=== PATIENT | male | born 1965 | race African-American/Black ===

== ENCOUNTER 2022-09-12 14:46 | Outpatient (REF) | payer OTHER, SELFPAY ==
--- NOTE | ~2022-09-12 | CT_ITS ---
EXAMINATION: CT CHEST SCREENING CLINICAL INFORMATION: Nicotine dependence. COMPARISON: None. TECHNIQUE: Multidetector volumetric CT imaging of the chest is performed without contrast using low dose technique. Additional 2D coronal and sagittal reformatted images and axial 3D maximum intensity projection (MIP) images are generated on the CT workstation. This CT examination was performed using dose optimization techniques as appropriate, variously including the following: *Automated exposure control *Adjustment of mA and/or kV according to patient size (this includes techniques or standardized protocols for targeted exams where dose is matched to indication/reason for exam; i.e. extremities or head) *Use of iterative reconstruction technique DLP: 52 mGy-cm FINDINGS: LUNGS: The lungs show centrilobular emphysema without acute pneumonic consolidation. There is no pulmonary or nodule mass. Minimal groundglass attenuation is seen in both lung bases. There is bilateral lower lobe bronchial wall thickening and mild bronchiectasis with endobronchial secretions in the left lower lobe axial image 388/6 and right upper lobe axial image 238/6. MEDIASTINUM: The thyroid lobes are symmetric and normal. The central trachea and the bronchi are widely patent. Heart size and the great vessels are normal caliber. No pericardial effusion seen. No abnormal size mediastinal or hilar lymph nodes seen. CORONARY ARTERY CALCIFICATION: None visualized on this study. PLEURA: There is no pleural effusion. No pleural mass or thickening. AXILLA: There are small shotty lymph nodes in the axilla. UPPER ABDOMEN: Visualized liver, spleen, pancreas and bilateral adrenal glands unremarkable. OSSEOUS STRUCTURES: No aggressive lytic or sclerotic process seen. CT/CT lung screening IMPRESSION: No pulmonary nodule or mass seen. Centrilobular emphysema. There is bilateral lower lobe bronchial wall thickening and mild bronchiectasis with endobronchial secretions in the left lower lobe and right upper lobe. ASSESSMENT: Lung-RADS category 2: Benign RECOMMENDATION: Low-dose annual CT chest.
== END 2022-09-12 14:47 | disposition home or self-care (01) ==
LOC: HO.CT 14:46
PROVIDERS: PCP Hospitalist; Visit Provider Physician Assistant Medical
DX: Z12.2 Encounter for screening for malignant neoplasm of respiratory organs (principal); F17.210 Nicotine dependence, cigarettes, uncomplicated
CPT/HCPCS: 71271; G0296

== ENCOUNTER 2024-03-14 08:26 | Outpatient (REF) | payer MEDICARE, SELFPAY ==
--- NOTE | ~2024-03-14 | CT_ITS ---
EXAMINATION: CT LUNG SCREENING CLINICAL INFORMATION: Nicotine dependence, cigarettes, uncomplicated. The patient is a current smoker with a 48 pack-year history of smoking. COMPARISON: CT chest 09/12/2022. TECHNIQUE: Multidetector volumetric CT imaging of the chest is performed on a Siemens SOMATOM Definition scanner without contrast using low dose technique. Additional 2D coronal and sagittal reformatted images and axial 3D maximum intensity projection (MIP) images are generated on the CT workstation. This CT examination was performed using dose optimization techniques as appropriate, variously including the following: *Automated exposure control *Adjustment of mA and/or kV according to patient size (this includes techniques or standardized protocols for targeted exams where dose is matched to indication/reason for exam; i.e. extremities or head) *Use of iterative reconstruction technique TOTAL EXAM DLP: 53 mGy-cm. CTDIvol: 1.43 mGy. FINDINGS: PULMONARY NODULES: Some tiny unchanged pulmonary nodules are seen, including a 2 mm left upper lobe nodule (5:132 and a 2 mm left lower lobe nodule (5:369). No new, increasing-sized or concerning nodules. LUNGS: Lungs bilaterally symmetrically expanded. Emphysematous changes are present along with bronchial thickening and some mild cylindrical bronchiectasis, similar to prior. No effusion or pneumothorax. Central airways patent. MEDIASTINUM: No mediastinal, hilar or axillary adenopathy or free fluid collection. CORONARY ARTERY CALCIFICATION: None visualized on this study. THYROID GLAND: Unremarkable to the extent seen. CARDIOVASCULAR STRUCTURES: Aortic and heart size normal. No pericardial effusion. CHEST WALL/AXILLA: Unremarkable. UPPER ABDOMEN: Included portions of the solid organs in the upper abdomen unremarkable on noncontrast imaging. OSSEOUS STRUCTURES: No suspicious focal findings. CT/CT lung screening IMPRESSION: 1. No evidence of pulmonary malignancy. 2. Stable tiny pulmonary nodules. 3. Emphysema and bronchial thickening. 4. Incidental findings (s category): No incidental findings. ASSESSMENT: 1. Lung-RADS Category 2: Benign appearance or behavior of nodules. N/A RECOMMENDATION: Continued routine annual low-dose CT lung screening in 1 year is recommended. An order for CT CHEST LOW DOSE CANCER SCREENING ([id number]) can be placed.
== END 2024-03-14 08:27 | disposition home or self-care (01) ==
LOC: HO.CT 08:26
PROVIDERS: PCP Hospitalist; Visit Provider Physician Assistant Medical
DX: Z12.2 Encounter for screening for malignant neoplasm of respiratory organs (principal); F17.210 Nicotine dependence, cigarettes, uncomplicated
CPT/HCPCS: 71271

== ENCOUNTER 2025-03-16 07:58 | Outpatient (REF) | payer MEDICARE, SELFPAY ==
--- NOTE | ~2025-03-16 | CT_ITS ---
CLINICAL HISTORY: F17.210 - Nicotine dependence, cigarettes, uncomplicated CT lung cancer screening (LDCT) Comparison: None Technique: Axial CT images of the chest using low-dose technique. Referring provider counseled the patient on shared decision-making for LDCT screening. Additional counseling was provided on smoking cessation. Effective radiation dose total: DLP 35.7 mGycm, CTDIvol 0.9 mGy. Findings: Pulmonary nodules: Few scattered 2 and 3 mm nodules are noted, for example right middle lobe axial 124. No significant or suspicious nodule. Incidental pulmonary findings: Mild centrilobular emphysema. Mild airway thickening. There are regions of scarring and/or atelectasis noted Non pulmonary findings: Coronary artery calcifications: None Limited upper abdomen: Unremarkable Other: Atherosclerotic disease of the aorta noted. Impression: LungRADS 2 - Benign Appearance: Continue annual screening with low dose Chest CT in 12 months. ##L2## Category 1: Normal; continue annual screening Category 2: Benign appearance or behavior, continue annual screening Category 3: Probably benign, [address] recommended Category 4A: Suspicious, [address] recommended; may consider PET/CT Category 4B: Suspicious, Additional diagnostics and/or tissue sampling recommended Category 4X: Suspicious, Additional diagnostics and/or tissue sampling recommended Category 0: Recalls (incomplete screen due to Incomplete coverage, Noise, Respiratory motion, Expiration, Obscured by acute abnormality) This document has been electronically signed by: Milind Lynne MD on 03/16/2025 11:27:55
--- OUTSIDE RECORDS SUMMARY | 2025-03-16 08:01 | XMS_ITS ---
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 Role Phone ABHISHEK PINA Primary Care Provider He Felix Unavailable [phone] REASON FOR VISIT ear wax Encounters Encounter Location Date Provider Diagnosis [facility] [address] [id number] 04/28/2024 He Felix Plan Of Treatment Next Appt Details Provider Name:ABHISHEK PINA , 08/14/2025 10:00:00 AM, [address] [place] [address], [place], [address], Progress Notes * Dale TURNEROB:1965 ( 59 yo M)Acc No.[id number]:04/28/2024 Patient:?ANTONIO Laurent Appointment Provider:?He Felix :1965???Age:59 Y???Sex:Male Ivan e:04/28/2024 Address:[address] [place] [id number] Pcp:ABHISHEK PINA Subjective: * Chief Complaints: * ???1. Ear wax. * Medical History:? Objective: * Vitals:? Assessment: Plan: * Treatment: * Procedure Codes:?NOSHO NO SH OW FEE * Images: * Electronic signature of Joseph Felix PA-C on 03/16/2025 at 08:01 AM EDT Sign off status: Pending * Appointment Provider:Stacie Parish te:?04/28/2024 Generated for Jonathon farris/Shruti/Victor M on:?03/16/2025 08:01 AM EDT
== END 2025-03-16 07:59 | disposition home or self-care (01) ==
LOC: HO.CT 07:58
PROVIDERS: PCP Hospitalist; Visit Provider Physician Assistant Medical
DX: Z12.2 Encounter for screening for malignant neoplasm of respiratory organs (principal); F17.210 Nicotine dependence, cigarettes, uncomplicated
CPT/HCPCS: 71271

== ENCOUNTER → 2025-03-16 08:00 | Outpatient (BNV) | payer MEDICARE, SELFPAY | PROVIDERS: PCP Hospitalist; Visit Provider Radiology Vascular & Interventional Radiology | DX: F17.210 Nicotine dependence, cigarettes, uncomplicated (principal) | CPT/HCPCS: 71271 ==